=== PATIENT | male | born 1980 | race Caucasian/White ===

== ENCOUNTER → 2018-03-19 13:00 | Outpatient (CLI) | payer BC, SELFPAY | PROVIDERS: PCP Family Medicine; Visit Provider Family Medicine | DX: R00.0 Tachycardia, unspecified (principal) | CPT/HCPCS: 93225; 93226 ==

== ENCOUNTER → 2018-03-24 07:33 | Outpatient (CLI) | payer BC, SELFPAY ==
--- NOTE | 2018-03-24 07:39 | NM_ITS ---
History and Indications: Tobacco use, family history, shortness of breath Procedure: Patient exercised on Azar protocol 10 minutes and 30 seconds, resting heart rate was 75 bpm resting blood pressure 111/63, with exercise maximum heart rate achieved was 1 69 bpm 85% of the maximum predicted heart rate and a blood pressure was 150/70. Test was started due to shortness of breath and fatigue patient denied any complained of chest pain. Patient has good exercise capacity achieved 12.8METS of workload on treadmill, the blood pressure response to exercise was adequate. Electrocardiogram: Resting echocardiogram showed sinus rhythm, with exercise there is less than 1.[address] segment depression noted from the baseline EKG. The EKG portion of the exercise Myoview is negative for ischemia. Cardiac stress and resting SPECT images: Cardiac stress and resting SPECT images were obtained using technetium 99 Myoview 32.4 mCi stress and 10.5 mCi at rest. Gated SPECT further analysis of segmental wall motion and calculation of the ejection fraction also done. Cardiac stress and resting SPECT images show uniform myocardial activity without segmental perfusion abnormality, computer derived ejection fraction is 63% with no regional wall motion abnormality, right ventricle is normal size and contractility. Conclusion: 1. The EKG portion of the exercise Myoview is negative for ischemia, patient has good exercise capacity achieved 12.8METS of workload on treadmill, the blood pressure response to exercise was adequate, there was no exercise-induced chest discomfort. 2. No scintigraphic evidence of reversible ischemia seen, computer derived ejection fraction is 63% with no regional wall motion abnormality, right ventricle is normal size and contractility. 3. Normal exercise Myoview study.
--- NOTE | 2018-03-24 09:15 | CA_ITS ---
PROCEDURE: 2-D M-mode and color Doppler study INDICATIONS FOR THE TEST: Chest pain COPD Heart Murmur Tobacco Smoking+ Palpitations Fatigue Syncope Edema Hypertension Diabetes Mellitus Rheumatic Fever SOB+FLANAGAN+Obesity Hyperlipidemia Family History HD+ Additional History PATIENT INFORMATION HEIGHT: 69 WEIGHT:170 GENDER: Male B/P:141/82 2-D/M-MODE INTERPRETATION: 2-D MEASUREMENTS OBSERVED VALUES IN CMS Right Ventricular Dimension (RVDd) 1.7 Interventricular Septum (Thickness)(IVsd) 1.0 Left Ventricular Internal Dimensions(LVIDd) 4.7 Left Ventricular Posterior Wall (Thickness)(LVPWd) 0.9 Aortic Root 2.3 Aortic Cusp Separation 1.9 Left Atrial Dimensions (LAD) 3.2 2D 1. Left atrium is normal size, left ventricle is normal size, there is no concentric left ventricular hypertrophy, visually estimated ejection fraction of 55% with no regional wall motion abnormality. 2. The right atrium and right ventricle are normal size and contractility. 3. The aortic, mitral and tricuspid and pulmonic valve are structurally normal. 4. No significant pericardial effusion noted. DOPPLER INTERROGATION: Doppler interrogation of the aortic, mitral and tricuspid presence of mild mitral and tricuspid regurgitation of no hemodynamic significance, diastolic parameters are within normal range. CONCLUSION: 1. Normal left ventricular size, preserved left ventricular systolic function, visually estimated ejection fraction 55-60% with no regional wall motion abnormality. Diastolic parameters are within normal range. 2. Mild mitral and tricuspid regurgitation 3. No significant pericardial effusion noted.
== END ==
PROVIDERS: PCP Family Medicine; Visit Provider Family Medicine
DX: R00.0 Tachycardia, unspecified (principal)
CPT/HCPCS: 78452; 93017; 93306; A9502

== ENCOUNTER → 2018-05-19 08:30 | Outpatient (CLI) | payer BC, SELFPAY ==
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
== END ==
PROVIDERS: PCP Family Medicine; Visit Provider Surgery
DX: R13.10 Dysphagia, unspecified (principal)
CPT/HCPCS: 74220

== ENCOUNTER → 2018-06-17 12:18 | Outpatient (CLI) | payer BC, SELFPAY ==
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
== END ==
PROVIDERS: PCP Family Medicine; Visit Provider Family Medicine
DX: R07.9 Chest pain, unspecified (principal)
CPT/HCPCS: 71260; Q9967

== ENCOUNTER → 2018-09-22 09:40 | Outpatient (CLI) | payer BC, SELFPAY ==
[2018-09-26 17:06] LABS: H. pylori Stool Ag, EIA Negative (Negative)
== END ==
PROVIDERS: Visit Provider Surgery
DX: A04.8 Other specified bacterial intestinal infections (principal)
CPT/HCPCS: 87338

== ENCOUNTER → 2019-02-24 08:43 | Outpatient (CLI) | payer BC, SELFPAY ==
[2019-02-25 19:25] LABS: H. pylori Breath Test Negative (Negative)
== END ==
PROVIDERS: Visit Provider Family Medicine
DX: R07.9 Chest pain, unspecified (principal); R10.13 Epigastric pain; Z86.19 Personal history of other infectious and parasitic diseases
CPT/HCPCS: 83013

== ENCOUNTER → 2019-03-25 12:55 | Outpatient (CLI) | payer BC, SELFPAY ==
--- NOTE | 2019-03-25 12:57 | CA_ITS ---
APPROVED REPORT EXAM: Comprehensive 2D, Doppler, and color-flow Echocardiogram Leaf Sorter: Yancy Joseph RDCS Ht: 5 ft 9 in Wt: 169lbs BSA: 1.92 BP: 117/72 mmHg Indications: CAD, Hyperlipidemia 2D Dimensions LVOT 1.99 cm (M/F) 1.5-2.5 M-Mode Dimensions RVDd 2.51 cm (0.9-2.6) LVDd 4.69 cm (3.5-5.7) LVDs 3.44 cm (3.5-5.7) IVSd 0.76 cm (0.6-1.1) PWd 0.67 cm (0.6-1.1) EF (Teich) 52.10% FS 26.70% EDV (Teich) 101.90 mL ESV (Teich) 48.80 mL LV Diastology E/A Ratio 1.19 Mitral Valve MV A Velocity 60.00 (40-130 cm/s) Left Ventricle Left atrium is normal size, left ventricle is normal size, there is no concentric left ventricular hypertrophy, visually estimated ejection fraction 55% with no regional wall motion abnormality, diastolic parameters are within normal range. Right Ventricle Right atrium and right ventricular normal size and contractility. Aortic Valve Aortic valve is minimally thickened and fibrosed. There is no aortic stenosis aortic insufficiency. Mitral Valve Mitral valve is grossly normal, there is trace mitral regurgitation. Tricuspid Valve Tricuspid valve is grossly normal, there is mild tricuspid regurgitation noted, tricuspid regurgitation jet velocity is insufficient for calculation of the right ventricular systolic pressure. Pulmonic Valve Pulmonic valve is poorly visualized. Great Vessels Aortic root is normal size. Pericardium No significant pericardial effusion noted. Conclusion 1. Normal left ventricular size, preserved left ventricular systolic function, visually estimated ejection fraction 55% with no regional wall motion abnormality. Diastolic parameters are within normal range. 2. Mild mitral and tricuspid regurgitation. 3. No significant pericardial effusion noted. Electronically signed by : Angel Ernst, 03/27/2019 11:04:02
--- NOTE | 2019-03-25 13:23 | CT_ITS ---
PROCEDURE: CT CHEST W CON CLINICAL HISTORY: pulm nodule COMPARISON: CHESTW CT chest w con from 06/17/2018 TECHNIQUE: Axial images obtained with sagittal and coronal reformats. All CT scans at the facility use one or more dose reduction, viz: automated exposure control, ma/kV adjustment per patient size (including targeted exams where dose is matched to indication, i.e. head), or iterative reconstruction technique. 75 mL Optiray 350 was utilized. FINDINGS: The lung omrse are well expanded. There is a stable tiny noncalcified nodule subpleural location right middle lobe unchanged in size from the previous exam. The even smaller nodule near the major fissure is stable. Nodule subpleural location lateral basilar segment right lower lobe is stable as well. The 5-6 mm noncalcified nodule lateral basilar segment left lower lobe is stable as well. There are no definite new nodule seen. There is no pneumonic infiltrate. Cardiac size is normal. There is no pleural fluid. IMPRESSION: Stable noncalcified pulmonary nodules, recommend follow-up CT scan of the chest in approximately 1 year for continuing evaluation Dictated by: Dr. Jeremy Johnson MD 03/27/2019 10:[address] Jeremy Johnson MD in [place] 03/27/2019 10:10
== END ==
PROVIDERS: PCP Family Medicine; Visit Provider Urology
DX: E78.5 Hyperlipidemia, unspecified (principal); I25.10 Atherosclerotic heart disease of native coronary artery without angina pectoris; S26.19XA Other injury of heart without hemopericardium, initial encounter; R91.1 Solitary pulmonary nodule
CPT/HCPCS: 71260; 93306; Q9967

== ENCOUNTER 2020-05-05 16:53 | Emergency (ER) | payer BC, SELFPAY ==
[2020-05-05 17:50] VITALS: BP 129/87; PULSE 76; RESP 16; TEMP 36.8; O2SAT 99; BMI 27.2
--- NOTE | 2020-05-05 18:06 | HMH.EDUTC ---
[facility] [place] Disposition Clinical Impression: Encounter for laboratory testing for COVID-19 virus Disposition: Home, Self-Care Condition on Discharge: Good Instructions: DI for COVID-19 (Suspected or Confirmed ), Coronavirus Disease 2019, Preventing the Spread of Coronavirus Discharge Instructions Additional Instructions: *Monitor Temp, Over the counter Motrin or Tylenol as directed/as needed Tylenol every 4 hours and Motrin every 6 hours (as long as your family doctor has told you that you can take it) for fever or pain. and straight to ER if unable to lower temp less than 101.0 after medication given Follow up IMMEDIATELY for new or worsening symptoms or no Noticeable improvement over the next 48-72 hours. 911 for difficulty breathing or swallowing You were tested for today for COVID19 your test result should be back in the next 24-48 hours, you may call to the [facility] to see if your test results are back in the next 48 hours [phone] [facility] hours are 9am-9pm You was given a handout with instructions for Self Quarantine and Self isolation for while you wait on test results and what to do if they are positive If you are positive the Health Dept will be contacting you also Referrals: Do Castillo MD [Primary Care Provider] - As needed Forms: Work/School Release Time of Disposition: 18:08 Medical Decision Making - [place] Inquiry Pt receiving controlled substance: No [place] was queried for this patient: No Vital Signs: 05/05/20 17:50 Temperature 98.2 F Temperature Source Oral Pulse Rate [Right Brachial] 76 Respiratory Rate 16 Blood Pressure [Right Arm] 129/87 Blood Pressure Mean [Right Arm] 101 Blood Pressure Source [Right Arm] Automatic Cuff Blood Pressure Position [Right Arm] Sitting 02 Sat by Pulse Oximetry 99 Oxygen Delivery Method Room Air Orders (Tests/Meds): ORDERS Category Date Time Status Covid-19 Nasal PCR ([facility]) Routine Lab 05/05/20 17:50 Received [facility] [place] HPI - General Stated complaint: covid test Time Seen by Provider: 05/05/20 18:06 Mode of Arrival: Ambulatory Source of Information: Patient Limitations: No Limitations Description of Symptoms (Recalled from Triage Doc. by RN): REQUESTING COVID TEST. C/O FATIGUE X 2 DAYS HEENT Symptoms (Recalled from RN notes): No Resp Symptoms (Recalled from RN notes): No Skin Symptoms (Recalled from RN notes): No MS Symptoms (Recalled from RN notes): No Functional Status (Recalled from RN notes): WNL - History of Present Illness Provider Complaint: Patient states that there is several people at his job that has tested positive for COVID States that for the last couple of days he has been feeling fatigue and body aches States that he was worried and wanted to get tested for COVID - Related Data Home Medications Medication Instructions Recorded Confirmed omeprazole 40 mg capsule,delayed 40 mg PO DAILY 08/10/18 09/29/18 release Allergies Allergy/AdvReac Type Severity Reaction Status Date / Time Penicillins Allergy Verified 03/21/19 09:31 - Worker's Comp Is this a Worker's Comp case?: No [facility] History - Hepatitis A Screen Drug use history?: No High risk sexual behaviors?: No History of sexually transmitted infection?: No Currently employed?: No Childcare worker?: No Do you have indoor plumbing?: Yes Do you have electricity?: Yes Attestation statement:: This patient has been screened for Hepatitis A risk factors. I have reviewed the patient's past medical history: Yes Medical History: Reports:: Gastroesophageal Reflux Disease(GERD), Hyperlipidemia Denies:: Diabetes Mellitus Type 1, Diabetes Mellitus Type 2, Internal Pacemaker, Lung Disease, Seizures Other Surgeries: Yes: Cardiac Catheterization, EGD, Other. No: Pacemaker - Social History Smoking Status: Former smoker #Yrs smoked (if former smoker): 19 Alcohol Intake: never Alcohol Intake Frequency:: holidays/special occasions only Substance Use Type: denies use Occupa
[2020-05-05 18:09] VITALS: BP 129/87; PULSE 76; RESP 16; TEMP 36.8; O2SAT 99
--- NOTE | 2020-05-06 21:13 | PC.NURSE ---
PT NOTIFIED OF POSITIVE COVID RESULTS
== END 2020-05-05 18:10 | disposition home or self-care (01) ==
PROVIDERS: Emergency Provider Nurse Practitioner; PCP Family Medicine
DX: U07.1 COVID-19 (principal); K21.9 Gastro-esophageal reflux disease without esophagitis; E78.5 Hyperlipidemia, unspecified
CPT/HCPCS: 99202; G0463; U0003

== ENCOUNTER 2025-01-05 11:00 | Outpatient (CLI) | payer BC, SELFPAY ==
[2025-01-05 15:08] LABS: Hematocrit 41.9 % (42.0-52.0); Hemoglobin 13.9 g/dL (14.1-18.0); Immature Granulocytes % 0.3 %; Mean Corpuscular HGB Conc 33.2 g/dL (31.8-35.4); Mean Corpuscular Hemoglobin 28.5 pg (27.0-31.2); Mean Corpuscular Volume 85.9 fl (80-94); Nucleated Red Blood Cells % 0 %; Platelet Count 203 K/mm3 (142-424); Red Blood Count 4.88 M/mm3 (4.60-6.20); Red Cell Distribution Width-SD 38.7 fL; White Blood Count 13.1 K/mm3 (4.8-10.8)
[2025-01-05 15:48] LABS: Albumin Level 4.5 g/dl (3.5-5.0); Chloride 103 mmol/L (98-107); Potassium 4.1 mmoL/L (3.5-5.1); Sodium 136 mmol/L (136-145)
[2025-01-05 15:50] LABS: Blood Urea Nitrogen 12 mg/dl (9-20); Creatinine,Serum 0.80 mg/dl (0.66-1.25); Estimated Glomerular Filt Rate 104 ml/min (>60); GFR (African American) 126 ML/MIN (>60)
[2025-01-05 15:51] LABS: Alanine Aminotransferase 92 U/L (12-78); Albumin/Globulin Ratio 1.7 (1.1-1.8); Alkaline Phosphatase 127 U/L (38-126); Anion Gap 12.1 mEq/L (5-15); Aspartate Amino Transferase 72 U/L (17-59); Bilirubin,Total 1.1 mg/dl (0.2-1.3); Calcium 9.2 mg/dl (8.4-10.2); Carbon Dioxide 25 mmol/L (22.0-30.0); Globulin 2.7 g/dL (1.3-3.2); Glucose 111 mg/dl (74-100); Total Protein,Serum 7.2 g/dl (6.3-8.2)
== END 2025-01-05 23:59 | disposition home or self-care (01) ==
LOC: LAB.DROPOF 01-06 10:24
PROVIDERS: PCP Nurse Practitioner; Visit Provider Nurse Practitioner
DX: R50.9 Fever, unspecified (principal); R10.32 Left lower quadrant pain; R31.9 Hematuria, unspecified
CPT/HCPCS: 80053; 85025; 87086

== ENCOUNTER 2025-01-09 09:48 | Outpatient (CLI) | payer BC, SELFPAY ==
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
--- NOTE | 2025-01-09 10:00 | CT_ITS ---
FINAL REPORT TECHNIQUE: After the administration of intravenous contrast, axial images were obtained through the abdomen and pelvis by computed tomography. This study was performed with technique to keep radiation doses as low as reasonably achievable, (ALARA). Individualized dose reduction techniques using automated exposure control or adjustment of the MA and/or KV according to the patient's size were employed. CLINICAL HISTORY: URGENT CT with IV cx - LLQ pain, fever, hematuria FINDINGS: Abdomen: The lung bases are clear. The liver is normal in size and attenuation. Gallbladder is unremarkable. The spleen is unremarkable. The adrenals are normal. The pancreas is unremarkable. The kidneys enhance appropriately. The aorta is normal in caliber. There is no free fluid or adenopathy. There is wall thickening of the left colon with the surrounding inflammation, suspect diverticulitis. However, colitis not excluded. Pelvis: No distal ureteral stone is seen. The appendix is normal. Rectosigmoid colon is unremarkable. The urinary bladder and prostate are unremarkable. There is no free fluid or adenopathy. IMPRESSION: Abnormal wall thickening with surrounding inflammation of the mid descending colon, favor diverticulitis. However, other forms of colitis are included within the differential but considered less likely. No urinary tract obstruction or stone disease. Reviewed, Interpreted and Dictated by Do Sterling MD Transcribed by Mohini Griffith Authenticated and [facility]
[2025-01-09] MEDS: IOPAMIDOL-370 (76%);100ML BOTTLE 75 ML IV (10:57)
[2025-01-09] MEDS: SODIUM CHLORIDE 0.9% 10ML SYR (RAD ONLY) 10 ML IV (10:57)
== END 2025-01-09 23:59 | disposition home or self-care (01) ==
LOC: RAD 09:49
PROVIDERS: PCP Nurse Practitioner; Visit Provider Nurse Practitioner
DX: R93.3 Abnormal findings on diagnostic imaging of other parts of digestive tract (principal); R31.9 Hematuria, unspecified; R10.32 Left lower quadrant pain; R50.9 Fever, unspecified
CPT/HCPCS: 74177; Q9967

== ENCOUNTER 2025-01-12 16:48 | Outpatient (CLI) | payer BC, SELFPAY ==
[2025-01-12 19:55] LABS: Hematocrit 38.9 % (42.0-52.0); Hemoglobin 13.0 g/dL (14.1-18.0); Immature Granulocytes % 0.2 %; Mean Corpuscular HGB Conc 33.4 g/dL (31.8-35.4); Mean Corpuscular Hemoglobin 28.3 pg (27.0-31.2); Mean Corpuscular Volume 84.6 fl (80-94); Nucleated Red Blood Cells % 0 %; Platelet Count 264 K/mm3 (142-424); Red Blood Count 4.60 M/mm3 (4.60-6.20); Red Cell Distribution Width-SD 36.4 fL; White Blood Count 5.5 K/mm3 (4.8-10.8)
[2025-01-12 20:50] LABS: Alanine Aminotransferase 30 U/L (12-78); Albumin Level 4.3 g/dl (3.5-5.0); Albumin/Globulin Ratio 1.7 (1.1-1.8); Alkaline Phosphatase 84 U/L (38-126); Anion Gap 10.9 mEq/L (5-15); Aspartate Amino Transferase 21 U/L (17-59); Bilirubin,Total 0.3 mg/dl (0.2-1.3); Blood Urea Nitrogen 12 mg/dl (9-20); Calcium 9.0 mg/dl (8.4-10.2); Carbon Dioxide 29 mmol/L (22.0-30.0); Chloride 100 mmol/L (98-107); Creatinine,Serum 0.80 mg/dl (0.66-1.25); Estimated Glomerular Filt Rate 104 ml/min (>60); GFR (African American) 126 ML/MIN (>60); Globulin 2.6 g/dL (1.3-3.2); Glucose 95 mg/dl (74-100); Potassium 3.9 mmoL/L (3.5-5.1); Sodium 136 mmol/L (136-145); Total Protein,Serum 6.9 g/dl (6.3-8.2)
== END 2025-01-12 23:59 ==
LOC: LAB.DROPOF 01-13 11:54
PROVIDERS: PCP Nurse Practitioner; Visit Provider Nurse Practitioner
DX: K57.92 Diverticulitis of intestine, part unspecified, without perforation or abscess without bleeding (principal)
CPT/HCPCS: 80053; 85025